=== PATIENT | female | born 1945 | race Two or more races ===

== ENCOUNTER 2022-03-30 13:30 | Emergency (ER) | payer MEDICARE, OTHER ==
[~2022-03-30] VITALS: Ht 160 cm; Wt 63.5 kg
--- NOTE | 2022-03-30 13:41 | NUR ---
TO ER BED 9, BIB DAUGHTER C/O WORSENING COUGH AND CONGESTION X 1 MONTH. AAOX3, BREATHING EVEN AND NON LABORED, CONNECTED TO MONITOR, AWAITING MD SIM
[2022-03-30] MEDS: IPRATROPIUM NEB FS 0.5 MG/2.5 ML AMPUL.NEB NEB ONE ×2 (15:00→15:18)
[2022-03-30] MEDS ORDERED: ALBUTEROL FS 2.5 MG/3 ML VIAL.NEB NEB ONE (15:00)
[2022-03-30] MEDS ORDERED: predniSONE 20 MG TABLET ONE (15:00)
[2022-03-30] MEDS ORDERED: predniSONE 20 MG TABLET PO ONE (15:00)
[2022-03-30] MEDS ORDERED: IPRATROPIUM NEB FS 0.5 MG/2.5 ML AMPUL.NEB ONE (15:12)
[2022-03-30] MEDS ORDERED: ALBUTEROL FS 2.5 MG/3 ML VIAL.NEB ONE (15:12)
--- NOTE | 2022-03-30 15:14 | NUR ---
RT AT BEDSIDE FOR BREATHING TREATMENT
[2022-03-30] MEDS ORDERED: LEVO750T46 PO (16:35)
[2022-03-30] MEDS ORDERED: BUDE180A INH (16:35)
[2022-03-30 16:40] VITALS: BP 160/69
== END 2022-03-30 16:41 | disposition home or self-care (01) ==
LOC: ER 13:38
DX: J44.9 Chronic obstructive pulmonary disease, unspecified (principal); J18.9 Pneumonia, unspecified organism; J45.909 Unspecified asthma, uncomplicated; Z79.899 Other long term (current) drug therapy
CPT/HCPCS: 71045; 94640; 99285; J7512